=== PATIENT | male | born 1955 | race Caucasian/White ===

== ENCOUNTER → 2017-01-17 | Outpatient (CLI) | payer OTHER, MEDICARE ==
[2017-01-17 18:18] LABS: ANION GAP 11 MEQ/L (8-16); BLOOD UREA NITROGEN 10 MG/DL (7-18); CARBON DIOXIDE LEVEL 23 MEQ/L (21-32); CHLORIDE LEVEL 105 MEQ/L (98-107); CREATININE FOR GFR 0.78 MG/DL (0.70-1.30); GLOMERULAR FILTRATION RATE > 60.0 (>49); GLUCOSE, FASTING 180 MG/DL (80-110); POTASSIUM SERUM 4.1 MEQ/L (3.5-5.1); SODIUM LEVEL 139 MEQ/L (136-145)
== END ==
LOC: M WUC 11:41
PROVIDERS: ATTEND Physician Assistant Medical
DX: E11.9 Type 2 diabetes mellitus without complications (principal)

== ENCOUNTER 2017-04-03 11:52 | Emergency (ER) | payer OTHER, MEDICARE ==
[~2017-04-03] VITALS: Ht 182.9 cm; Wt 120.2 kg
[2017-04-03] MEDS ORDERED: METF500T4 (12:05)
[2017-04-03] MEDS ORDERED: OMEP20CA3 (12:05)
[2017-04-03] MEDS ORDERED: BYDU1INJ (12:05)
[2017-04-03] MEDS ORDERED: PIOG30TA4 (12:05)
[2017-04-03] MEDS ORDERED: WELC625T (12:05)
[2017-04-03] MEDS ORDERED: ASPI81TA85 PO (12:05)
[2017-04-03] MEDS ORDERED: EZET10TA (12:05)
[2017-04-03] MEDS ORDERED: GLYB25TA (12:05)
[2017-04-03] MEDS ORDERED: LISI-538 (12:05)
[2017-04-03] MEDS ORDERED: diazePAM 5 MG TAB PO ONE (13:00)
[2017-04-03] MEDS ORDERED: KETOROLAC 60 MG/2 ML VIAL (J1885) IM ONE (13:00)
--- NOTE | 2017-04-03 13:44 | REP ---
CERVICAL SPINE, EIGHT VIEWS: HISTORY: Neck pain. The cervical spine is visualized from C1 to the C5-6 level in the lateral radiographs. There is no acute fracture. The C3-4 through C5-6 intervertebral discs are decreased in height consistent with disc degeneration. Osteophytes are present on C4-6. There is narrowing of the right C4-6 and left C5 and 6 neural foramina secondary to uncinate process hypertrophy. There are 1.5 mm of anterior subluxation of C3 on 4. This increases to 2 mm with flexion and reduces with extension. IMPRESSION: Degenerative change as described above. Signed by Deondre Lawrence MD 04/03/2017 01:46 P
[2017-04-03] MEDS ORDERED: VALI5TAB PO (14:13)
[2017-04-03] MEDS ORDERED: NAPR500T PO (14:13)
[2017-04-03 14:35] VITALS: BP 146/84
== END 2017-04-03 14:37 | disposition home or self-care (01) ==
LOC: M ED 12:52
DX: M50.31 Other cervical disc degeneration, high cervical region (principal); E11.9 Type 2 diabetes mellitus without complications; I10 Essential (primary) hypertension; I25.10 Atherosclerotic heart disease of native coronary artery without angina pectoris; G89.29 Other chronic pain; M06.9 Rheumatoid arthritis, unspecified; E66.9 Obesity, unspecified; Z88.5 Allergy status to narcotic agent; Z91.040 Latex allergy status; Z91.018 Allergy to other foods; Z79.899 Other long term (current) drug therapy
CPT/HCPCS: 72052; 96372; 99282; J1885

== ENCOUNTER → 2017-07-10 | Outpatient (CLI) | payer OTHER, MEDICARE ==
[~2017-07-10] MED LIST: ACTO30TA15 PO; ASPI81TA85 PO; BYDU1INJ SQ; CHLO125TA PO; CHLO25TA PO; COLE625TAB PO; EZET10TA; FISH1000 PO; GLYB25TA PO; LISI-538 PO; METF500T4 PO; NAPR500T PO; NORV5TAB PO; OMEP20CA3 PO; PIOG30TA4; ROSU20TA PO; SPIR25TA2 PO; VALI5TAB PO; VANC125C2 PO
[2017-07-10 13:31] LABS: ALBUMIN/GLOBULIN RATIO 1.25 (1.00-1.93); ALKALINE PHOSPHATASE 63 U/L (45-117); ALT/SGPT 83 U/L (12-78); ANION GAP 13 MEQ/L (8-16); AST/SGOT 68 U/L (15-37); BILIRUBIN,DIRECT 0.2 MG/DL (0.0-0.2); BILIRUBIN,TOTAL 0.6 MG/DL (0.2-1.0); BLOOD UREA NITROGEN 13 MG/DL (7-18); CALCIUM LEVEL 8.8 MG/DL (8.8-10.2); CARBON DIOXIDE LEVEL 25 MEQ/L (21-32); CHLORIDE LEVEL 104 MEQ/L (98-107); CHOLESTEROL LEVEL 219 MG/DL (<200); CREATININE FOR GFR 0.72 MG/DL (0.70-1.30); GLOMERULAR FILTRATION RATE > 60.0 (>49); GLUCOSE, FASTING 177 MG/DL (80-110); POTASSIUM SERUM 4.1 MEQ/L (3.5-5.1); SODIUM LEVEL 142 MEQ/L (136-145); TOTAL PROTEIN 7.2 GM/DL (6.4-8.2); TRIGLYCERIDES LEVEL 175 MG/DL (<150)
== END ==
LOC: M WUC 08:34
PROVIDERS: ATTEND Internal Medicine Endocrinology, Diabetes & Metabolism
DX: E78.00 Pure hypercholesterolemia, unspecified (principal); E11.9 Type 2 diabetes mellitus without complications

== ENCOUNTER 2017-08-07 11:09 | Emergency (ER) | payer OTHER, MEDICARE ==
[~2017-08-07] VITALS: Ht 182.9 cm; Wt 119.1 kg
[~2017-08-07 11:09] MED LIST changes: -ACTO30TA15 PO; -CHLO125TA PO; -CHLO25TA PO; -FISH1000 PO; -NORV5TAB PO; -ROSU20TA PO; -SPIR25TA2 PO; -VANC125C2 PO
[2017-08-07] MEDS ORDERED: ACTO30TA15 PO (11:28)
[2017-08-07] MEDS ORDERED: ROSU20TA PO (11:28)
[2017-08-07] MEDS ORDERED: SPIR25TA2 PO (11:28)
[2017-08-07] MEDS ORDERED: FISH1000 PO (11:28)
[2017-08-07] MEDS ORDERED: CHLO125TA PO (11:28)
[2017-08-07] MEDS ORDERED: ASPIRIN 81 MG CHEW TABLET PO ONE (11:30)
[2017-08-07 11:36] LABS: BASO % 0.1 % (0.0-1.0); IMMATURE GRANULOCYTE % 0.4 % (0-0); LYMPH # 0.6 10^3/uL (1.5-4.5); LYMPH % 6.5 % (24.0-44.0); MEAN CORPUSCULAR HEMOGLOBIN 31.8 pg (27.0-33.0); MEAN CORPUSCULAR VOLUME 90.7 fl (80.0-96.0); MONO # 0.3 10^3/uL (0.0-0.8); MONO % 3.4 % (0.0-5.0); NEUTROPHILS # 8.1 10^3/uL (1.8-7.7); NEUTROPHILS % 89.6 % (36.0-66.0); PLATELET COUNT, AUTOMATED 210 10^3/uL (150-450); RED CELL DISTRIBUTION WIDTH 12.9 % (11.5-14.5); WHITE BLOOD COUNT 9.1 10^3/uL (4.0-10.0)
[2017-08-07] MEDS: NITROGLYCERIN 0.4 MG SUBL TABLET SL PRN ×3 (11:37→11:56)
[2017-08-07 11:59] LABS: ALBUMIN 4.3 GM/DL (3.2-5.2); ALBUMIN/GLOBULIN RATIO 1.02 (1.00-1.93); ALKALINE PHOSPHATASE 72 U/L (45-117); ALT/SGPT 70 U/L (12-78); ANION GAP 10 MEQ/L (8-16); AST/SGOT 40 U/L (15-37); BILIRUBIN,DIRECT 0.3 MG/DL (0.0-0.2); BILIRUBIN,TOTAL 0.9 MG/DL (0.2-1.0); BLOOD UREA NITROGEN 18 MG/DL (7-18); CALCIUM LEVEL 9.5 MG/DL (8.8-10.2); CARBON DIOXIDE LEVEL 22 MEQ/L (21-32); CHLORIDE LEVEL 99 MEQ/L (98-107); GLOMERULAR FILTRATION RATE > 60.0 (>49); GLUCOSE, FASTING 295 MG/DL (80-110); POTASSIUM SERUM 3.9 MEQ/L (3.5-5.1); SODIUM LEVEL 131 MEQ/L (136-145); TOTAL PROTEIN 8.5 GM/DL (6.4-8.2)
[2017-08-07] MEDS ORDERED: ONDANSETRON 4MG/2ML VIAL (J2405) IV ONE (12:00)
--- NOTE | 2017-08-07 12:00 | REP ---
Portable chest x-ray: Single view. History: Chest pain. Comparison chest x-ray: April 17, 2010. Findings: EKG monitoring electrodes overlie the chest. The lungs are symmetrically aerated and clear. The pleural angles are sharp. Heart is not enlarged. Pulmonary vasculature is not increased. No significant bony abnormality is seen. Impression: No acute disease. Signed by Rosalio Paz MD 08/07/2017 11:51 A
[2017-08-07] MEDS ORDERED: ISOVUE-370 76% 100ML VIAL (Q9967) As Ordered ONE (14:32)
[2017-08-07] MEDS ORDERED: CHLORTHALIDONE 12.5MG PER 1/2 TABLET PO ONE (15:00)
[2017-08-07] MEDS ORDERED: LISINOPRIL 20 MG TAB PO ONE ×2 (15:00→16:00)
--- NOTE | 2017-08-07 15:01 | REP ---
CT pulmonary angiogram: With IV contrast. History: Chest pain. Comparison studies: No comparison. 75 cc's of Isovue 370 are administered intravenously. Contrast dose: CT technique: Helical scanning is acquired and overlapping 1.5 mm and contiguous 3 mm axial images are reformatted. In addition, a 3-D work station is deployed to generate thick slab maximum intensity projection images in sagittal and coronal imaging projections. CT pulmonary angiographic findings: There is good opacification of the pulmonary arterial tree. There is no CT evidence of pulmonary embolus. The thoracic aorta enhances homogeneously and is normal in course and caliber. There is some vascular calcification including left coronary artery vascular calcification. No adrenal lesion is seen. Visualized upper abdominal structures are unremarkable. No hilar or mediastinal mass or adenopathy is observed. The lung villareal are clear. Maximal intensity projection images show no evidence of vessel cutoff or filling defect. There is a calcified granuloma in the anterior segment right upper lobe. No bony abnormality is seen. Impression: No CT evidence of pulmonary embolus. No active disease. Granulomatous calcification right upper lobe. Signed by Rosalio Paz MD 08/07/2017 02:53 P
[2017-08-07] MEDS ORDERED: GI COCKTAIL 50ML BTL(HYOSCYAMINE/MAALOX/LIDOCAINE VISCOUS)(1:3:1) As Ordered ONE (15:28)
[2017-08-07] MEDS ORDERED: GI COCKTAIL 50ML BTL(HYOSCYAMINE/MAALOX/LIDOCAINE VISCOUS)(1:3:1) PO ONE (15:30)
[2017-08-07 16:00] VITALS: BP 170/79
[2017-08-07 18:15] VITALS: BP 185/91
--- NOTE | 2017-08-08 07:39 | ECGEPIP ---
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
--- NOTE | 2017-08-08 07:43 | ECGEPIP ---
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
== END 2017-08-07 18:19 | disposition home or self-care (01) ==
LOC: M ED 11:09
DX: R07.9 Chest pain, unspecified (principal); I10 Essential (primary) hypertension; E78.4 Other hyperlipidemia; G47.33 Obstructive sleep apnea (adult) (pediatric)
CPT/HCPCS: 36415; 71010; 71275; 80048; 80076; 82550; 82553; 83690; 84443; 85025; 85730; 93005; 93041; 94760; 96374; 99285; J2405; Q9967

== ENCOUNTER 2017-08-11 05:54 | Inpatient (IN) | payer OTHER, MEDICARE ==
[~2017-08-11] VITALS: Ht 182.9 cm; Wt 111.2 kg
[~2017-08-11 05:54] MED LIST changes: +ACTO30TA15 PO; +CHLO125TA PO; +FISH1000 PO; +ROSU20TA PO; +SPIR25TA2 PO
[2017-08-11] MEDS ORDERED: NS 500 ML IV ONE ×2 (06:45→10:45)
[2017-08-11] MEDS ORDERED: GASTROGRAFIN SOLUTION 30ML PO ONE (06:45)
[2017-08-11 06:58] LABS: MEAN CORPUSCULAR HEMOGLOBIN 31.5 pg (27.0-33.0); MEAN CORPUSCULAR HGB CONC 35.7 g/dl (32.0-36.5); MEAN CORPUSCULAR VOLUME 88.2 fl (80.0-96.0); PLATELET COUNT, AUTOMATED 266 10^3/uL (150-450); RED CELL DISTRIBUTION WIDTH 12.6 % (11.5-14.5)
[2017-08-11 07:03] LABS: ADD MANUAL DIFFER YES; DIFF SLIDE NUMBER 133; LEFT SHIFT POS FLAG; POSITIVE MORPH POS FLAG; WBC SCAT POS FLAG
[2017-08-11] MEDS ORDERED: GASTROGRAFIN SOLUTION 30ML (Q9963) PO ONE (07:15)
[2017-08-11] MEDS ORDERED: NS 1,000 ML IV ONE ×2 (07:15→08:00)
[2017-08-11 07:24] LABS: BANDS 5 % (< 11); EOSINOPHILS 2 % (0-5)
[2017-08-11 07:29] LABS: ALBUMIN 3.5 GM/DL (3.2-5.2); ALBUMIN/GLOBULIN RATIO 0.88 (1.00-1.93); BILIRUBIN,DIRECT 0.1 MG/DL (0.0-0.2); BILIRUBIN,TOTAL 0.5 MG/DL (0.2-1.0); CALCIUM LEVEL 8.3 MG/DL (8.8-10.2); CREATININE FOR GFR 3.56 MG/DL (0.70-1.30); GLOMERULAR FILTRATION RATE 18.5 (>49); POTASSIUM SERUM 3.2 MEQ/L (3.5-5.1); TOTAL PROTEIN 7.5 GM/DL (6.4-8.2)
--- NOTE | 2017-08-11 08:09 | REP ---
Clinical: Diarrhea and acute abdominal pain. Technique: Axial noncontrast images from the lung bases to the pubic symphysis with coronal and sagittal re-formations. Comparison: 06/13/2012. Findings: Lung bases are clear. Fatty infiltration to the liver noted. Cholelithiasis suggested without acute cholecystitis. Spleen, pancreas, bilateral adrenal glands and kidneys are normal for noncontrast evaluation. The enteric system is without obstruction or acute inflammatory process. Few scattered sigmoid diverticula noted without acute diverticulitis. Normal terminal ileum and appendix identified in the right lower quadrant. The patient is status post ventral hernia repair with mesh in stable position. Pelvis demonstrates normal bladder and age appropriate prostate/seminal vesicles. Fat containing left inguinal hernia noted. No ascites. No adenopathy. No mass. Atherosclerotic changes of the aorta without aneurysm. Musculoskeletal structures demonstrate age-related degenerative changes. Impression: 1. Hepatic steatosis. 2. Layering sludge/cholelithiasis suggested without acute cholecystitis. 3. Few scattered sigmoid diverticula. 4. Small fat containing left inguinal hernia. 5. No further acute abdominopelvic pathology appreciated. Signed by Juno Quintana MD 08/11/2017 08:00 A
[2017-08-11] MEDS: NS 1,000 ML IV SCH ×3 (09:08→23:51)
[2017-08-11] MEDS ORDERED: ONDANSETRON 4MG/2ML VIAL (J2405) IV PRN (09:15)
[2017-08-11] MEDS ORDERED: CHLO25TA PO (09:27)
[2017-08-11] MEDS ORDERED: KCL 10MEQ IN 100ML SWI (KRUN) 10 MEQ in APPROPRIATE DILUENT 1 EA IV ONE ×2 (09:30)
--- NOTE | 2017-08-11 09:42 | ECGEPIP ---
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
[2017-08-11 09:46] LABS: MAGNESIUM LEVEL 1.9 MG/DL (1.8-2.4)
[2017-08-11 13:27] VITALS: BP 95/60
[2017-08-11] MEDS: VANCOMYCIN ORAL SOL 250MG/5ML ORAL SYRINGE PO SCH ×3 (14:50→23:50)
[2017-08-11] MEDS: AZITHROMYCIN 250 MG TAB PO SCH (14:50)
[2017-08-11 15:19] LABS: CALCIUM LEVEL 7.2 MG/DL (8.8-10.2); CREATININE FOR GFR 1.97 MG/DL (0.70-1.30); GLOMERULAR FILTRATION RATE 36.6 (>49); POTASSIUM SERUM 3.2 MEQ/L (3.5-5.1)
[2017-08-11 16:00] VITALS: BP 85/50
[2017-08-11] MEDS ORDERED: GLUCAGON FOR INJ 1 MG VIAL (J1610) SC PRN (16:15)
[2017-08-11] MEDS ORDERED: DEXTROSE 50% 50 ML SYRINGE IV PRN (16:15)
[2017-08-11] MEDS ORDERED: GLUCOSE 4 GM CHEW TABLET PO PRN (16:15)
--- NOTE | 2017-08-11 16:37 | HPE ---
DATE OF ADMISSION: 08/11/2017 Mr. Cowan is a patient of Dr. De La Torre. Surgeon is Dr. Cabrera. Beef Pusher is Dr. Sanchez. CHIEF COMPLAINT: Diarrhea. SUMMARY OF HIS PRESENTATION: This is a 62-year-old who last felt well on 08/06/2017. Last week he had a stress test. He had gone for a steak, egg and cheese bagel at [employer]. After that he developed abdominal pain and diarrhea. He had stomach pain that affected his sleep. Diarrhea advanced until he was having stools every hour. He described no blood. He actually developed some chest discomfort and came to the emergency department on the . On that daily, he had a CT angiogram of his chest and his blood pressure was noted to be high. His blood pressure medications had been adjusted. He was doubled on his Lisinopril and started on one or more diuretics. Since then he has noticed decreasing urinary output and increasing diarrhea with poor oral intake. PAST MEDICAL HISTORY: 1. Obstructive sleep apnea on CPAP. 2. Diabetes. 3. Exposure to Agent [place]. 4. History of hepatitis A. 5. Hypertension. 6. Epistaxis. SURGICAL HISTORY: Notable for: 1. Umbilical hernia repair by Dr. Venegas. 2. Revision by Dr. Reardon with mesh. 3. Repair of a broken arm on the left as a child. FAMILY HISTORY: Notable for mother who at age 72 of bone cancer. Father of a myocardial infarction at age 76. Two uncles with myocardial infarctions. ALLERGIES: BONITA, LATEX, MORPHINE. MEDICATIONS: At home include: - aspirin - chlorthalidone - Welchol - fish oil - glyburide - Lisinopril - metformin - omeprazole - Crestor - spironolactone - Bydureon - Actos REVIEW OF SYSTEMS: Notable for feeling chills, no recorded fever. No shortness of breath. No chest pain. He has had abdominal pain without radiation, which he describes as crampy, otherwise unremarkable. SOCIAL HISTORY: He is a disabled . He is independent in his activities of daily living. He denies smoking or alcohol use. PHYSICAL EXAMINATION: Temperature is 97, pulse 82, respiratory rate 18, blood pressure 105/60, 94% on room air. He is awake, appropriately interactive, pleasantly conversant, good historian. NECK: Thick and supple. LUNGS: Breathing is symmetrical. I:E ratio is 1:3. No wheezes, rales or rhonchi. Capillary refill is less than 2 seconds. Radial pulses are 2+. ABDOMEN: Distended. Mild right lower quadrant tenderness without rebound or guarding. EXTREMITIES: No lower extremity edema. Strength is 5/5 in upper and lower extremities. I actually watch him ambulate without difficulty. Cranial nerves II through XII are grossly intact. Normal mood and affect. White cell count 10, hemoglobin 16, platelets of 266. Sodium is 134, potassium 3.2, BUN 42, creatinine 1.97. Gastrointestinal panel is positive for campylobacter and Clostridium (C) difficile. ASSESSMENT: This is a 62-year-old with infectious diarrhea and acute renal failure, which is most likely multifactorial. PLAN: As follows: 1. Acute renal failure. This is most likely multifactorial, representing combination of effect of recent CT contrast test, infectious diarrhea, poor medication side effect. The plan would be to continue with IV hydration. He has had episodes of hypotension. It is notable to make mention that when he has had episodes of hypotension, he has not been noted to have elevated lactic acid and he has been ambulating with a systolic blood pressure is low with permission of the staff. 2. The patient has infectious diarrhea. He will be given three doses of Zithromax and a course of oral vancomycin. He has not had recent antibiotic use. He did eat out at [employer]. No recent travel. He does have well water at home, but they do not drink the well water. No sick contacts. 3. The patient has electrolyte abnormalities, including hyponatremia and hypokalemia, which will be repleted. Magnesium level is within normal limits. Elevated lipase, which I believe is from his GI illness. CT scan showed no evidence of pancreatitis. He has no pain in his left upper quadrant. We will repeat laboratories tomorrow. He is made nothing by mouth. If he improves, he will be made clear liquids this evening. 4. The patient has obstructive sleep apnea. He will be given permission to use his CPAP from home. 5. The patient has diabetes. He will be placed on fingersticks and sliding scale insulin. He has already stopped his metformin at home, but had been taking his glyburide. 6. The patient has a history of hypertension. Obviously, his antihypertensives are held. This can be reevaluated as an outpatient. 7. The patient has had a recent stress test.
[2017-08-11] MEDS ORDERED: POTASSIUM CHLORIDE 10 MEQ SR TABLET PO ONE (16:45)
[2017-08-11] MEDS: HumaLOG INSULIN (NovoLOG) PER UNIT SC SCH ×2 (17:30→21:00)
[2017-08-11 20:00] VITALS: BP 119/58
[2017-08-11 23:59] VITALS: BP 121/59
[2017-08-12 04:00] VITALS: BP 115/61
[2017-08-12] MEDS: VANCOMYCIN ORAL SOL 250MG/5ML ORAL SYRINGE PO SCH ×3 (05:10→17:23)
[2017-08-12 05:29] LABS: MEAN CORPUSCULAR HEMOGLOBIN 31.4 pg (27.0-33.0); MEAN CORPUSCULAR HGB CONC 34.9 g/dl (32.0-36.5); RED CELL DISTRIBUTION WIDTH 12.5 % (11.5-14.5); WHITE BLOOD COUNT 7.5 10^3/uL (4.0-10.0)
[2017-08-12 06:02] LABS: ALBUMIN 2.9 GM/DL (3.2-5.2); ALBUMIN/GLOBULIN RATIO 0.91 (1.00-1.93); ALKALINE PHOSPHATASE 55 U/L (45-117); ALT/SGPT 52 U/L (12-78); ANION GAP 8 MEQ/L (8-16); AST/SGOT 43 U/L (15-37); BILIRUBIN,TOTAL 0.4 MG/DL (0.2-1.0); BLOOD UREA NITROGEN 24 MG/DL (7-18); CALCIUM LEVEL 7.5 MG/DL (8.8-10.2); CARBON DIOXIDE LEVEL 23 MEQ/L (21-32); CHLORIDE LEVEL 106 MEQ/L (98-107); GLOMERULAR FILTRATION RATE > 60.0 (>49); GLUCOSE, FASTING 147 MG/DL (80-110); MAGNESIUM LEVEL 1.9 MG/DL (1.8-2.4); POTASSIUM SERUM 3.2 MEQ/L (3.5-5.1); SODIUM LEVEL 137 MEQ/L (136-145); TOTAL PROTEIN 6.1 GM/DL (6.4-8.2)
[2017-08-12] MEDS ORDERED: POTASSIUM CHLORIDE 10% LIQ 20 MEQ/15 ML UDC PO ONE (06:45)
[2017-08-12 07:25] VITALS: BP 100/60
[2017-08-12] MEDS: AZITHROMYCIN 250 MG TAB PO SCH (08:47)
[2017-08-12] MEDS: HumaLOG INSULIN (NovoLOG) PER UNIT SC SCH ×4 (08:47→20:57)
--- NOTE | 2017-08-12 11:01 | IPNPDOC ---
Text Note Date of Service The patient was seen on 08/12/17. NOTE Subjective: Patient seen and examined at bedside. No new medical complaints. States his abdominal pain has resolved. Objective: General: NAD, lying comfortably in bed HEENT: NC/AT, EOMI, PERRL Lungs: CTA B/L Heart: +S1S2 Abd: soft, NT, +BS Ext: no edema ASSESSMENT: This is a 62-year-old with infectious diarrhea and acute renal failure, which is most likely multifactorial. PLAN: As follows: 1. Acute renal failure - resolved - most likely multifactorial, representing combination of effect of recent CT contrast test, infectious diarrhea, poor medication side effect - decrease rate of iv fluids today - monitor renal function - he has been hypotensive - continue to follow clinically 2. The patient has infectious diarrhea - zithromycin, oral vanco - GI panel positive results noted - Campylobacter, CDiff - He has not had recent antibiotic use. He did eat out at [employer]. No recent travel. He does have well water at home, but they do not drink the well water. No sick contacts. 3. Electrolyte abnormalities - continue to follow and replete as needed 4. The patient has obstructive sleep apnea. He will be given permission to use his CPAP from home. 5. The patient has diabetes. He will be placed on fingersticks and sliding scale insulin. He has already stopped his metformin at home, but had been taking his glyburide. 6. The patient has a history of hypertension. His antihypertensives are held. This can be reevaluated as an outpatient. 7. The patient has had a recent stress test. 8. DVT prophylaxis - mechanical VS,Fishbone, I+O VS, Fishbone, I+O Laboratory Tests 08/11/17 14:50 Calcium Level 7.2 L 08/12/17 04:54 Calcium Level 7.5 L, Red Blood Count 4.42, Mean Corpuscular Volume 90.0, Mean Corpuscular Hemoglobin 31.4, Mean Corpuscular Hemoglobin Concent 34.9, Red Cell Distribution Width 12.5, Aspartate Amino Transf (AST/SGOT) 43 H, Alanine Aminotransferase (ALT/SGPT) 52, Alkaline Phosphatase 55, Total Bilirubin 0.4, Total Protein 6.1 L, Albumin 2.9 L Vital Signs Date Time Temp Pulse Resp B/P (MAP) Pulse Ox O2 Delivery O2 Flow Rate FiO2 08/12/17 07:25 97.1 67 20 100/60 (73) 94 Room Air I&O- Last 24 Hours up to 6 AM 08/13/17 05:59 Intake Total 180 ml Output Total 125 ml Balance 55 ml MAKEDA NICOLAS MD Aug 12, 2017 11:01
[2017-08-12] MEDS: NS 1,000 ML IV SCH (11:58)
[2017-08-12 12:00] VITALS: BP 120/70
[2017-08-12 16:00] VITALS: BP 110/70
[2017-08-12 20:00] VITALS: BP 146/90
[2017-08-12 23:59] VITALS: BP 136/60
[2017-08-13] MEDS: VANCOMYCIN ORAL SOL 250MG/5ML ORAL SYRINGE PO SCH ×5 (00:02→23:47)
[2017-08-13] MEDS: NS 1,000 ML IV SCH (01:33)
[2017-08-13 04:00] VITALS: BP 143/65
[2017-08-13 06:23] LABS: MEAN CORPUSCULAR HEMOGLOBIN 31.6 pg (27.0-33.0); MEAN CORPUSCULAR HGB CONC 35.5 g/dl (32.0-36.5); MEAN CORPUSCULAR VOLUME 88.9 fl (80.0-96.0); RED CELL DISTRIBUTION WIDTH 12.4 % (11.5-14.5); WHITE BLOOD COUNT 8.8 10^3/uL (4.0-10.0)
[2017-08-13 06:41] LABS: ALBUMIN 3.4 GM/DL (3.2-5.2); ALBUMIN/GLOBULIN RATIO 0.94 (1.00-1.93); ALKALINE PHOSPHATASE 68 U/L (45-117); ALT/SGPT 61 U/L (12-78); ANION GAP 8 MEQ/L (8-16); AST/SGOT 47 U/L (15-37); BILIRUBIN,TOTAL 0.5 MG/DL (0.2-1.0); BLOOD UREA NITROGEN 11 MG/DL (7-18); CALCIUM LEVEL 8.9 MG/DL (8.8-10.2); CARBON DIOXIDE LEVEL 24 MEQ/L (21-32); CHLORIDE LEVEL 102 MEQ/L (98-107); CREATININE FOR GFR 0.84 MG/DL (0.70-1.30); GLOMERULAR FILTRATION RATE > 60.0 (>49); GLUCOSE, FASTING 162 MG/DL (80-110); MAGNESIUM LEVEL 1.5 MG/DL (1.8-2.4); POTASSIUM SERUM 3.5 MEQ/L (3.5-5.1); SODIUM LEVEL 134 MEQ/L (136-145)
[2017-08-13 08:00] VITALS: BP 130/72
[2017-08-13] MEDS ORDERED: MAG SULF 1GM/100ML (MAG RUN) 1 GM in APPROPRIATE DILUENT 1 EA IV ONE (08:00)
--- NOTE | 2017-08-13 08:14 | IPNPDOC ---
Text Note Date of Service The patient was seen on 08/13/17. NOTE Subjective: Patient seen and examined at bedside. No new medical complaints. States his abdominal pain has resolved. Objective: General: NAD, lying comfortably in bed HEENT: NC/AT, EOMI, PERRL Lungs: CTA B/L Heart: +S1S2 Abd: soft, NT, +BS Ext: no edema ASSESSMENT: This is a 62-year-old with infectious diarrhea and acute renal failure, which is most likely multifactorial. PLAN: As follows: 1. Acute renal failure - resolved - most likely multifactorial, representing combination of effect of recent CT contrast test, infectious diarrhea, poor medication side effect - will dc IV fluids today - monitor renal function - he has been hypotensive - continue to follow clinically 2. The patient has infectious diarrhea - zithromycin, oral vanco - GI panel positive results noted - Campylobacter, CDiff - advance diet - He has not had recent antibiotic use. He did eat out at [employer]. No recent travel. He does have well water at home, but they do not drink the well water. No sick contacts. 3. Electrolyte abnormalities - continue to follow and replete as needed 4. The patient has obstructive sleep apnea - compliant with CPAP. 5. The patient has diabetes. - blood sugars have been normal in hospital - discontinued sliding scale 6. The patient has a history of hypertension. His antihypertensives are held. This can be reevaluated as an outpatient. 7. The patient has had a recent stress test. 8. DVT prophylaxis - mechanical VS,Fishbone, I+O VS, Fishbone, I+O Laboratory Tests 08/13/17 05:52 Red Blood Count 4.43, Mean Corpuscular Volume 88.9, Mean Corpuscular Hemoglobin 31.6, Mean Corpuscular Hemoglobin Concent 35.5, Red Cell Distribution Width 12.4 , Calcium Level 8.9 #, Aspartate Amino Transf (AST/SGOT) 47 H, Alanine Aminotransferase (ALT/SGPT) 61, Alkaline Phosphatase 68, Total Bilirubin 0.5, Total Protein 7.0, Albumin 3.4 Vital Signs Date Time Temp Pulse Resp B/P (MAP) Pulse Ox O2 Delivery O2 Flow Rate FiO2 08/13/17 04:00 98.6 91 18 143/65 (91) 98 Room Air MAKEDA NICOLAS MD Aug 13, 2017 08:14
[2017-08-13] MEDS: AZITHROMYCIN 250 MG TAB PO SCH (08:28)
[2017-08-13 16:00] VITALS: BP 128/74
[2017-08-13 19:31] VITALS: BP 148/70
[2017-08-14 04:00] VITALS: BP 163/92
[2017-08-14] MEDS: VANCOMYCIN ORAL SOL 250MG/5ML ORAL SYRINGE PO SCH ×4 (05:07→23:47)
[2017-08-14 05:52] LABS: MEAN CORPUSCULAR HEMOGLOBIN 31.3 pg (27.0-33.0); MEAN CORPUSCULAR HGB CONC 35.1 g/dl (32.0-36.5); RED CELL DISTRIBUTION WIDTH 12.3 % (11.5-14.5); WHITE BLOOD COUNT 8.5 10^3/uL (4.0-10.0)
[2017-08-14 06:12] LABS: ALBUMIN 3.3 GM/DL (3.2-5.2); ALBUMIN/GLOBULIN RATIO 0.89 (1.00-1.93); ALKALINE PHOSPHATASE 58 U/L (45-117); ALT/SGPT 71 U/L (12-78); ANION GAP 8 MEQ/L (8-16); AST/SGOT 52 U/L (15-37); BILIRUBIN,TOTAL 0.5 MG/DL (0.2-1.0); BLOOD UREA NITROGEN 12 MG/DL (7-18); CALCIUM LEVEL 9.3 MG/DL (8.8-10.2); CARBON DIOXIDE LEVEL 27 MEQ/L (21-32); CHLORIDE LEVEL 99 MEQ/L (98-107); CREATININE FOR GFR 0.92 MG/DL (0.70-1.30); GLOMERULAR FILTRATION RATE > 60.0 (>49); GLUCOSE, FASTING 177 MG/DL (80-110); MAGNESIUM LEVEL 1.3 MG/DL (1.8-2.4); POTASSIUM SERUM 3.6 MEQ/L (3.5-5.1); SODIUM LEVEL 134 MEQ/L (136-145)
[2017-08-14 07:41] VITALS: BP 164/84
--- NOTE | 2017-08-14 08:41 | IPNPDOC ---
Text Note Date of Service The patient was seen on 08/14/17. NOTE Subjective: Patient seen and examined at bedside. No new medical complaints. States his abdominal pain has resolved. Still having diarrhea. Had some hot flashes this morning, with elevated blood pressure. Objective: General: NAD, sitting comfortably in bed HEENT: NC/AT, EOMI, PERRL Lungs: CTA B/L Heart: +S1S2 Abd: soft, NT, +BS Ext: no edema ASSESSMENT: This is a 62-year-old with infectious diarrhea and acute renal failure, which is most likely multifactorial. PLAN: As follows: 1. Acute renal failure - resolved - most likely multifactorial, representing combination of effect of recent CT contrast test, infectious diarrhea, poor medication side effect - he has been hypotensive, today hypertensive - continue to follow clinically 2. The patient has infectious diarrhea - completed course of azithromycin, continue oral vanco - GI panel positive results noted - Campylobacter, CDiff - tolerating diet - No recent antibiotic use. No recent travel. He does have well water at home, but they do not drink the well water. No sick contacts. 3. Electrolyte abnormalities - hypomagnesemia - continue to follow and replete as needed 4. The patient has obstructive sleep apnea - compliant with CPAP. 5. The patient has diabetes. - blood sugars have been normal in hospital - discontinued sliding scale 6. The patient has a history of hypertension - His antihypertensives have been held secondary to hypotension - will start norvasc today 7. The patient has had a recent stress test. 8. DVT prophylaxis - mechanical VS,Fishbone, I+O VS, Fishbone, I+O Laboratory Tests 08/14/17 05:21 Red Blood Count 4.38, Mean Corpuscular Volume 89.0, Mean Corpuscular Hemoglobin 31.3, Mean Corpuscular Hemoglobin Concent 35.1, Red Cell Distribution Width 12.3 , Calcium Level 9.3, Aspartate Amino Transf (AST/SGOT) 52 H, Alanine Aminotransferase (ALT/SGPT) 71, Alkaline Phosphatase 58, Total Bilirubin 0.5, Total Protein 7.0, Albumin 3.3 Vital Signs Date Time Temp Pulse Resp B/P (MAP) Pulse Ox O2 Delivery O2 Flow Rate FiO2 08/14/17 07:41 97.0 88 18 164/84 (110) 95 Room Air I&O- Last 24 Hours up to 6 AM 08/15/17 06:00 Intake Total 240 ml Output Total 100 ml Balance 140 ml MAKEDA NICOLAS MD Aug 14, 2017 08:41
[2017-08-14] MEDS ORDERED: amLODIPine 5 MG TAB PO SCH (09:00)
[2017-08-14] MEDS: MAG SULF 1GM/100ML (MAG RUN) 1 GM in APPROPRIATE DILUENT 1 EA IV SCH ×2 (10:00→11:17)
[2017-08-14 11:31] VITALS: BP 172/90
[2017-08-14] MEDS: LISINOPRIL 20 MG TAB PO SCH (11:53)
[2017-08-14] MEDS: SLF 3 ML SYR IV SCH ×2 (12:23→23:47)
[2017-08-14] MEDS ORDERED: SLF 3 ML SYR IV PRN (12:30)
[2017-08-14 16:54] VITALS: BP 132/78
[2017-08-14 20:00] VITALS: BP 122/69
[2017-08-14 21:00] VITALS: BP 158/94
[2017-08-15] VITALS: BP 159/84
[2017-08-15 04:00] VITALS: BP 131/73
[2017-08-15] MEDS: SLF 3 ML SYR IV SCH (06:26)
[2017-08-15] MEDS: VANCOMYCIN ORAL SOL 250MG/5ML ORAL SYRINGE PO SCH ×2 (06:26→12:10)
[2017-08-15 07:33] LABS: MEAN CORPUSCULAR HEMOGLOBIN 31.4 pg (27.0-33.0); MEAN CORPUSCULAR HGB CONC 35.2 g/dl (32.0-36.5); MEAN CORPUSCULAR VOLUME 89.2 fl (80.0-96.0); PLATELET COUNT, AUTOMATED 237 10^3/uL (150-450); RED CELL DISTRIBUTION WIDTH 12.3 % (11.5-14.5); WHITE BLOOD COUNT 12.9 10^3/uL (4.0-10.0)
[2017-08-15 07:54] LABS: ALBUMIN 3.5 GM/DL (3.2-5.2); ALBUMIN/GLOBULIN RATIO 0.92 (1.00-1.93); ALKALINE PHOSPHATASE 69 U/L (45-117); ALT/SGPT 82 U/L (12-78); ANION GAP 9 MEQ/L (8-16); AST/SGOT 54 U/L (15-37); BILIRUBIN,TOTAL 0.5 MG/DL (0.2-1.0); BLOOD UREA NITROGEN 13 MG/DL (7-18); CALCIUM LEVEL 9.4 MG/DL (8.8-10.2); CARBON DIOXIDE LEVEL 24 MEQ/L (21-32); CHLORIDE LEVEL 102 MEQ/L (98-107); CREATININE FOR GFR 0.94 MG/DL (0.70-1.30); GLOMERULAR FILTRATION RATE > 60.0 (>49); GLUCOSE, FASTING 187 MG/DL (80-110); MAGNESIUM LEVEL 1.4 MG/DL (1.8-2.4); POTASSIUM SERUM 3.7 MEQ/L (3.5-5.1); SODIUM LEVEL 135 MEQ/L (136-145); TOTAL PROTEIN 7.3 GM/DL (6.4-8.2)
[2017-08-15 08:00] VITALS: BP 133/77
[2017-08-15 08:38] VITALS: BP 133/77
[2017-08-15] MEDS: LISINOPRIL 20 MG TAB PO SCH (08:38)
[2017-08-15] MEDS ORDERED: MAG SULF 1GM/100ML (MAG RUN) 1 GM in APPROPRIATE DILUENT 1 EA IV SCH (09:00)
[2017-08-15] MEDS ORDERED: MAG SULF 1GM/100ML (MAG RUN) 1 GM in APPROPRIATE DILUENT 1 EA IV ONE (09:00)
[2017-08-15] MEDS ORDERED: NORV5TAB PO (11:16)
[2017-08-15] MEDS ORDERED: LISI-538 PO (11:16)
[2017-08-15] MEDS ORDERED: VANC125C2 PO (11:34)
--- NOTE | 2017-08-15 19:45 | DS.PDOC ---
Discharge Summary General Date of Admission Aug 11, 2017 at 09:08 Date of Discharge 08/15/17 Primary Care Physician: NEETU WELLS MD Attending Physician: MAKEDA NICOLAS MD Discharge Summary PROCEDURES PERFORMED DURING STAY: None ADMITTING DIAGNOSES: 1. Acute renal failure. 2. Infectious diarrhea. 3. Electrolyte abnormalities. 4. Obstructive sleep apnea 5. Diabetes 6. Hypertension DISCHARGE DIAGNOSES: 1. Clostridium difficile and Campylobacter positive stool 2. Acute renal failure, resolved. 3. Hypomagnesia 4. Obstructive sleep apnea 5. Diabetes 6. Hypertension COMPLICATIONS/CHIEF COMPLAINT: Acute Kidney Failure. HISTORY OF PRESENT ILLNESS: Patient is 62-year-old male who has history of diabetes, hepatitis, hypertension presents to the emergency room with diarrhea. He stated that he went to [employer] for steak and cheese bagel and afterwards developed abdominal pain and diarrhea. He stated his stomach pain affected his sleep. Was having diarrhea every hour, denied blood. A few days prior to admission patient had developed chest pain and got to the ER. He had a high blood pressure and his blood pressure medications were adjusted. He was doubled on his lisinopril and started on multiple diuretics. Since then he has noticed decreased urinary output and increasing diarrhea with poor oral intake. HOSPITAL COURSE: On the ER patient received a CT of abdomen and pelvis. His did not reveal any cause of patient's diarrhea. GI panel was performed and revealed positive Clostridium difficile and Campylobacter. Patient was started on antibiotics. Patient had low blood pressure in the ER and was started on IV fluids. Vitals were continued to be monitored and IV fluids were continued as patient was hypotensive. Over course of stay blood pressure normalized. Patient had a normal lactic acid on admission. Patient not had any recent antibiotic use. No recent travel. Patient was given potassium for repletion of hypokalemia. Due to acute renal failure diuretics, lisinopril, glyburide and metformin were stopped. Patient's kidney function was followed over the course of stay and improved patient's diarrhea continued to resolve her decrease. Patient did not have diarrhea on discharge. However magnesium was still low. Patient was given IV backgrounds and a one-time dose of oral magnesium. Patient will follow-up on this outpatient. Due to patient's acute kidney energy blood pressure medications were adjusted. Patient was slowly started on lisinopril 20 mg by mouth. DISCHARGE MEDICATIONS: Please see below. ALLERGIES: Please see below. PHYSICAL EXAMINATION ON DISCHARGE: VITAL SIGNS: Please see below. GENERAL: Alert, cooperative. Comfortable. No acute distress. HEENT: HEENT. No bruising. There is pain. No rhinorrhea. Extraocular muscles intact. NECK: No lymphadenopathy. CARDIOVASCULAR EXAMINATION: Normal S1 and S2. No murmurs. RESPIRATORY EXAMINATION: Clear to auscultation. No wheezing. ABDOMINAL EXAMINATION: Soft nondistended. EXTREMITIES: Moves all extremities equally. No lower extremity edema. SKIN: No bruising. NEUROLOGICAL EXAMINATION: Speech intact. PSYCHIATRIC EXAMINATION: Normal affect. LABORATORY DATA: Please see below. IMAGING: Abdominal/pelvis CT impression showed 1. Hepatic steatosis. 2. Layering sludge/cholelithiasis suggested without acute cholecystitis. 3. Few scattered sigmoid diverticula. 4. Small fat containing left inguinal hernia. 5. No further acute abdominopelvic pathology appreciated. PROGNOSIS: Stable ACTIVITY: As tolerated DIET: 2 g sodium. DISCHARGE PLAN: Plan is to discharge patient home. Patient is continued on vancomycin by mouth 125 mg every 6 hours. Patient's blood pressure medications were adjusted. Patient will go home on amlodipine 5 mg daily. Diuretics were discontinued. Lisinopril was decreased from 40 to 20 mg. DISPOSITION: 01 Home, Self-Care. DISCHARGE INSTRUCTIONS: 1. Follow-up in low magnesium level. Patient was given IV and oral prednisone discharge. Patient's have lab repeated outpatient tomorrow Friday and results sent to primary care doctor. Dr. Wells. 2. Patient's primary care doctor, Dr. Wells in 3-5 days. 3. Patient continue vancomycin 125 mg oral every 6 hours for 5 days. 4. Patient's blood pressure medications were adjusted. Patient is now taking lisinopril 20 mg daily and amlodipine 5 mg daily. DISCHARGE CONDITION: Stable TIME SPENT ON DISCHARGE: Greater than 30 minutes. Vital Signs/I&Os Vital Signs Date Time Temp Pulse Resp B/P (MAP) Pulse Ox O2 Delivery O2 Flow Rate FiO2 08/15/17 08:38 133/77 08/15/17 08:00 97.6 99 18 98 Room Air I&O- Last 24 Hours up to 6 AM 08/16/17 05:59 Intake Total 700 ml Output Total 650 ml Balance 50 ml Laboratory Data Labs 24H Laboratory Tests 2 08/15/17 06:51: Nucleated Red Blood Cells % (auto) 0.0, Anion Gap 9, Glomerular Filtration Rate > 60.0, Blood Urea Nitrogen 13, Creatinine 0.94, Sodium Level 135L, Potassium Level 3.7, Chloride Level 102, Carbon Dioxide Level 24, Calcium Level 9.4, Aspartate Amino Transf (AST/SGOT) 54H, Alanine Aminotransferase (ALT/SGPT) 82H, Alkaline Phosphatase 69, Total Bilirubin 0.5, Total Protein 7.3, Albumin 3.5, Magnesium Level 1.4L, Albumin/Globulin Ratio 0.92L CBC/BMP Laboratory Tests 08/15/17 06:51 Red Blood Count 4.71, Mean Corpuscular Volume 89.2, Mean Corpuscular Hemoglobin 31.4, Mean Corpuscular Hemoglobin Concent 35.2, Red Cell Distribution Width 12.3 , Calcium Level 9.4, Aspartate Amino Transf (AST/SGOT) 54 H, Alanine Aminotransferase (ALT/SGPT) 82 H, Alkaline Phosphatase 69, Total Bilirubin 0.5, Total Protein 7.3, Albumin 3.5 Microbiology Microbiology 08/11/17 Gastrointestinal Tract Panel (PCR) - Final, Complete Campylobacter Clostridium Difficile A/B Discharge Medications Scheduled Amlodipine Besylate (Norvasc) 5 Mg Tab, 5 MG PO DAILY Aspirin (Aspir-81) 81 Mg Tab, 81 MG PO QPM, (Reported) Colesevelam Hydrochloride (Welchol) 625 Mg Tab, 1,875 MG PO BID, (Reported) Exenatide (Bydureon) 2 Mg Inj, 2 MG SQ QWEEK, (Reported) SUNDAYS Fish Oil (Fish Oil) 1,000 Mg Cap, 1,000 MG PO BID, (Reported) Glyburide (Glyburide) 2.5 Mg Tab, 2.5 MG PO BID, (Reported) Lisinopril (Lisinopril) 20 Mg Tab, 20 MG PO DAILY Metformin Hydrochloride (Metformin HCl ER) 500 Mg Tab, 1,000 MG PO BID, ( Reported) Omeprazole (Omeprazole) 20 Mg Cap, 20 MG PO DAILY, (Reported) Pioglitazone Hydrochloride (Actos) 30 Mg Tab, 30 MG PO DAILY, (Reported) Rosuvastatin Calcium (Rosuvastatin Calcium) 20 Mg Tab, 10 MG PO QPM, (Reported) Vancomycin Hcl (Vancomycin HCl) 125 Mg Cap, 125 MG PO Q6H Allergies Coded Allergies: Latex (Verified Allergy, Unknown, 04/03/17) [place] (Unverified Allergy, Unknown, 04/03/17) Morphine (Verified Allergy, Unknown, 04/03/17) GME ATTESTATION GME ATTESTATION My preceptor for this patient encounter was physically present in the building during the encounter and was fully available. As needed, all aspects of the patient interview, examination, medical decision making process, and medical care plan development were reviewed and approved by the preceptor. Preceptor is aware and concurs with the plan as stated in the body of this note and will attest to such by his/her cosignature. MAKEDA DURBIN DO Aug 15, 2017 19:45
[2017-08-16] MEDS ORDERED: MAGNESIUM CHLORIDE 64 MG TABCR (SLO MAG) PO SCH (09:00)
== END 2017-08-15 12:25 | disposition home or self-care (01) | DRG 372 ==
LOC: M ED 05:54 → M ED INP 09:08 → M PCU 13:27 → M PED 08-14 19:58
PROVIDERS: ADMIT Internal Medicine; ATTEND Internal Medicine
DX: A04.72 Enterocolitis due to Clostridium difficile, not specified as recurrent (principal); A04.5 Campylobacter enteritis; N17.9 Acute kidney failure, unspecified; G47.33 Obstructive sleep apnea (adult) (pediatric); E87.8 Other disorders of electrolyte and fluid balance, not elsewhere classified; E11.9 Type 2 diabetes mellitus without complications; I10 Essential (primary) hypertension; Z91.040 Latex allergy status; Z88.5 Allergy status to narcotic agent; Z91.018 Allergy to other foods; Z99.89 Dependence on other enabling machines and devices; Z79.82 Long term (current) use of aspirin; Z79.84 Long term (current) use of oral hypoglycemic drugs; Z79.899 Other long term (current) drug therapy

== ENCOUNTER → 2017-08-16 | Outpatient (CLI) | payer OTHER, MEDICARE ==
[~2017-08-16] MED LIST changes: +CHLO25TA PO; +NORV5TAB PO; +VANC125C2 PO
== END ==
LOC: M WUC 10:13
PROVIDERS: ATTEND Family Medicine
DX: E83.42 Hypomagnesemia (principal)

== ENCOUNTER → 2017-09-22 | Outpatient (CLI) | payer OTHER, MEDICARE ==
[2017-09-22 15:25] LABS: ALBUMIN 3.7 GM/DL (3.2-5.2); ALKALINE PHOSPHATASE 67 U/L (45-117); ALT/SGPT 52 U/L (12-78); ANION GAP 8 MEQ/L (8-16); AST/SGOT 41 U/L (7-37); BILIRUBIN,TOTAL 0.5 MG/DL (0.2-1.0); BLOOD UREA NITROGEN 10 MG/DL (7-18); CALCIUM LEVEL 8.8 MG/DL (8.8-10.2); CARBON DIOXIDE LEVEL 26 MEQ/L (21-32); CHLORIDE LEVEL 105 MEQ/L (98-107); CREATININE FOR GFR 0.72 MG/DL (0.70-1.30); GLOMERULAR FILTRATION RATE > 60.0 (>49); GLUCOSE, FASTING 175 MG/DL (80-110); MAGNESIUM LEVEL 1.9 MG/DL (1.8-2.4); POTASSIUM SERUM 4.3 MEQ/L (3.5-5.1); SODIUM LEVEL 139 MEQ/L (136-145); TOTAL PROTEIN 7.4 GM/DL (6.4-8.2)
[2017-09-22 15:45] LABS: BASO % 0.5 % (0.0-1.0); EOS # 0.1 10^3/uL (0.0-0.50); EOS % 1.3 % (0.0-3.0); IMMATURE GRANULOCYTE % 0.5 % (0-0); LYMPH # 1.9 10^3/uL (1.5-4.5); LYMPH % 30.1 % (24.0-44.0); MEAN CORPUSCULAR HGB CONC 32.6 g/dl (32.0-36.5); MONO # 0.6 10^3/uL (0.0-0.8); MONO % 9.2 % (0.0-5.0); NEUTROPHILS # 3.6 10^3/uL (1.8-7.7); NEUTROPHILS % 58.4 % (36.0-66.0); PLATELET COUNT, AUTOMATED 213 10^3/uL (150-450); RED CELL DISTRIBUTION WIDTH 13.7 % (11.5-14.5); WHITE BLOOD COUNT 6.2 10^3/uL (4.0-10.0)
== END ==
LOC: M WUC 09:33
PROVIDERS: ATTEND Emergency Medicine
DX: A04.72 Enterocolitis due to Clostridium difficile, not specified as recurrent (principal); E83.42 Hypomagnesemia

== ENCOUNTER → 2017-10-24 | Outpatient (CLI) | payer OTHER, MEDICARE ==
[2017-10-24 18:29] LABS: ALBUMIN 3.8 GM/DL (3.2-5.2); ALKALINE PHOSPHATASE 63 U/L (45-117); ALT/SGPT 52 U/L (12-78); AST/SGOT 42 U/L (7-37); BILIRUBIN,DIRECT 0.1 MG/DL (0.0-0.2); BILIRUBIN,TOTAL 0.4 MG/DL (0.2-1.0); CHOLESTEROL LEVEL 217 MG/DL (<200); TOTAL PROTEIN 7.6 GM/DL (6.4-8.2); TRIGLYCERIDES LEVEL 231 MG/DL (<150)
== END ==
LOC: M WUC 11:30
DX: E78.00 Pure hypercholesterolemia, unspecified (principal)
CPT/HCPCS: 80076

== ENCOUNTER → 2017-12-22 | Outpatient (CLI) | payer OTHER, MEDICARE ==
[2017-12-22 12:55] LABS: BASO % 0.6 % (0.0-1.0); EOS # 0.2 10^3/uL (0.0-0.50); EOS % 2.3 % (0.0-3.0); HEMATOCRIT 36.1 % (42.0-52.0); HEMOGLOBIN 12.3 g/dl (14.0-18.0); IMMATURE GRANULOCYTE % 0.2 % (0-3.0); LYMPH % 29.7 % (24.0-44.0); MEAN CORPUSCULAR HEMOGLOBIN 31.6 pg (27.0-33.0); MEAN CORPUSCULAR HGB CONC 34.1 g/dl (32.0-36.5); MEAN CORPUSCULAR VOLUME 92.8 fl (80.0-96.0); MONO # 0.6 10^3/uL (0.0-0.8); MONO % 9.3 % (0.0-5.0); NEUTROPHILS # 3.8 10^3/uL (1.8-7.7); NEUTROPHILS % 57.9 % (36.0-66.0); PLATELET COUNT, AUTOMATED 165 10^3/uL (150-450); RED BLOOD COUNT 3.89 10^6/uL (4.30-6.10); RED CELL DISTRIBUTION WIDTH 13.4 % (11.5-14.5); WHITE BLOOD COUNT 6.6 10^3/uL (4.0-10.0)
[2017-12-22 13:14] LABS: ANION GAP 6 MEQ/L (8-16); BLOOD UREA NITROGEN 18 MG/DL (7-18); CALCIUM LEVEL 8.9 MG/DL (8.8-10.2); CARBON DIOXIDE LEVEL 27 MEQ/L (21-32); CHLORIDE LEVEL 106 MEQ/L (98-107); CREATININE FOR GFR 0.82 MG/DL (0.70-1.30); GLOMERULAR FILTRATION RATE > 60.0 (>49); GLUCOSE, FASTING 144 MG/DL (70-100); MAGNESIUM LEVEL 1.8 MG/DL (1.8-2.4); POTASSIUM SERUM 4.6 MEQ/L (3.5-5.1); SODIUM LEVEL 139 MEQ/L (136-145)
[2017-12-22 13:22] LABS: TOTAL 25(OH) VITAMIN D 23.7 NG/ML (30.0-100.0)
== END ==
LOC: M WUC 10:36
DX: I10 Essential (primary) hypertension (principal); E83.42 Hypomagnesemia; R04.0 Epistaxis; E55.9 Vitamin D deficiency, unspecified; J30.9 Allergic rhinitis, unspecified

== ENCOUNTER → 2018-07-01 | Outpatient (CLI) | payer MEDICARE, OTHER ==
[2018-07-01 20:14] LABS: ALBUMIN 3.9 GM/DL (3.2-5.2); ALBUMIN/GLOBULIN RATIO 1.18 (1.00-1.93); ALKALINE PHOSPHATASE 50 U/L (45-117); ALT/SGPT 47 U/L (12-78); ANION GAP 12 MEQ/L (8-16); AST/SGOT 34 U/L (7-37); BILIRUBIN,TOTAL 0.4 MG/DL (0.2-1.0); BLOOD UREA NITROGEN 19 MG/DL (7-18); CARBON DIOXIDE LEVEL 22 MEQ/L (21-32); CHLORIDE LEVEL 108 MEQ/L (98-107); CHOLESTEROL LEVEL 121 MG/DL (<200); CHOLESTEROL RISK RATIO 2.951 (<5); GLOMERULAR FILTRATION RATE > 60.0 (>49); GLUCOSE, FASTING 104 MG/DL (70-100); HDL CHOLESTEROL 41 MG/DL (>40); LDL CHOLESTEROL 33.4 MG/DL (<100); MAGNESIUM LEVEL 2.1 MG/DL (1.8-2.4); NON-HDL-C 80 MG/DL; POTASSIUM SERUM 3.9 MEQ/L (3.5-5.1); SODIUM LEVEL 142 MEQ/L (136-145); TOTAL PROTEIN 7.2 GM/DL (6.4-8.2); TRIGLYCERIDES LEVEL 233 MG/DL (<150)
[2018-07-01 20:16] LABS: ESTIMATED AVERAGE GLUCOSE 180 MG/DL (60-110); HEMOGLOBIN A1c 7.9 %
[2018-07-01 20:17] LABS: TOTAL 25(OH) VITAMIN D 45.4 NG/ML (30.0-100.0)
[2018-07-01 20:35] LABS: MALB URINE SIEMENS 8.3 MG/L; MAU/CREAT RATIO 7.6 MCG/MG (0.0-30.0)
== END ==
LOC: M WUC 17:34
DX: E11.40 Type 2 diabetes mellitus with diabetic neuropathy, unspecified (principal); E78.2 Mixed hyperlipidemia; E55.9 Vitamin D deficiency, unspecified
CPT/HCPCS: 83735

== ENCOUNTER → 2018-07-10 | Outpatient (CLI) | payer MEDICARE, OTHER | LOC: M WUC 11:59 | DX: S20.212A Contusion of left front wall of thorax, initial encounter (principal); S40.022A Contusion of left upper arm, initial encounter; S80.01XA Contusion of right knee, initial encounter; X58.XXXA Exposure to other specified factors, initial encounter; Y92.89 Other specified places as the place of occurrence of the external cause; Y93.9 Activity, unspecified; Y99.9 Unspecified external cause status | CPT/HCPCS: 71101 ==

== ENCOUNTER → 2018-10-08 | Outpatient (CLI) | payer MEDICARE, OTHER ==
[~2018-10-08] MED LIST changes: +NAPR-50 PO; -NAPR500T PO; +PIOG1TAB37; -PIOG30TA4; -ROSU20TA PO; +ROSU20TA4 PO; +SPIR-10 PO; -SPIR25TA2 PO
[2018-10-08 12:50] LABS: ALBUMIN 4.1 GM/DL (3.2-5.2); ALT/SGPT 51 U/L (12-78); BILIRUBIN,TOTAL 0.4 MG/DL (0.2-1.0); BLOOD UREA NITROGEN 14 MG/DL (7-18); CALCIUM LEVEL 9.1 MG/DL (8.8-10.2); CARBON DIOXIDE LEVEL 27 MEQ/L (21-32); CHLORIDE LEVEL 103 MEQ/L (98-107); CHOLESTEROL LEVEL 150 MG/DL (<200); CHOLESTEROL RISK RATIO 3.409 (<5); CREATININE FOR GFR 0.89 MG/DL (0.70-1.30); GLOMERULAR FILTRATION RATE > 60.0 (>49); GLUCOSE, FASTING 165 MG/DL (70-100); HDL CHOLESTEROL 44 MG/DL (>40); LDL CHOLESTEROL 72 MG/DL (<100); NON-HDL-C 106 MG/DL; POTASSIUM SERUM 4.2 MEQ/L (3.5-5.1); SODIUM LEVEL 138 MEQ/L (136-145); TOTAL PROTEIN 7.4 GM/DL (6.4-8.2); TRIGLYCERIDES LEVEL 172 MG/DL (<150)
== END ==
LOC: M WUC 09:10
PROVIDERS: ATTEND Physician Assistant
DX: E78.2 Mixed hyperlipidemia (principal)

== ENCOUNTER → 2018-10-19 | Outpatient (REF) | payer MEDICARE, OTHER ==
[2018-10-19 14:21] LABS: HEMOGLOBIN A1c 8.2 %
== END ==
LOC: M LABDRWCV 13:12
PROVIDERS: ATTEND Physician Assistant
DX: R73.01 Impaired fasting glucose (principal)

== ENCOUNTER → 2019-06-01 | Outpatient (REF) | payer MEDICARE, OTHER ==
[~2019-06-01] MED LIST changes: -EZET10TA; +EZET10TA21; -NAPR-50 PO; +NAPR-837 PO; -OMEP20CA3 PO; +OMEP20CA4 PO; -ROSU20TA4 PO; +ROSU20TA5 PO; -VANC125C2 PO; +VANC125C3 PO
[2019-06-01 18:03] LABS: MALB URINE SIEMENS 9.3 MG/L
== END ==
LOC: M LAB REF 16:02
PROVIDERS: ATTEND Nurse Practitioner Family
DX: E11.9 Type 2 diabetes mellitus without complications (principal)

== ENCOUNTER 2019-08-28 17:47 | Emergency (ER) | payer MEDICARE, OTHER ==
[~2019-08-28] VITALS: Ht 182.9 cm; Wt 119.9 kg
[~2019-08-28 17:47] MED LIST changes: +METF-791 PO; -METF500T4 PO
[2019-08-28] MEDS ORDERED: GLYB5TA (18:08)
[2019-08-28] MEDS ORDERED: CHLO125TA (18:08)
[2019-08-28] MEDS ORDERED: LOSA100T50 (18:08)
[2019-08-28] MEDS ORDERED: CARV12.5 (18:08)
--- NOTE | 2019-08-28 18:48 | REPVR ---
PROCEDURE INFORMATION: Exam: CT Head Without Contrast Exam date and time: 08/28/2019 6:14 PM Clinical history: 64 years old, male; Injury or trauma; Fall; Initial encounter; Concussion / head injury; Consciousness not specified TECHNIQUE: Imaging protocol: Computed tomography of the head without contrast. Radiation optimization: All CT scans at this facility use at least one of these dose optimization techniques: automated exposure control; mA and/or kV adjustment per patient size (includes targeted exams where dose is matched to clinical indication); or iterative reconstruction. COMPARISON: No relevant prior studies available. FINDINGS: Brain: Benign appearing calcifications in the basal ganglia bilaterally. Subtle, patchy areas of hypoattenuation in the periventricular and subcortical white matter, nonspecific but suggestive of mild chronic small vessel ischemic disease. No CT evidence of acute intracranial hemorrhage or acute territorial infarction. No significant mass effect or midline shift. Basal cisterns patent. Ventricles: Prominence of the cortical sulci, cisterns and ventricular system, consistent with cerebral and cerebellar volume loss. Bones/joints: Mildly displaced fractures of the right anterior and lateral maxillary sinus velazquez, extending to the orbital floor. Mild deformity of the nasal bones. Sinuses: Dependent blood products in the right maxillary sinus. Mild ethmoid mucosal thickening. Mastoid air cells: Grossly unremarkable. Soft tissues: Right periorbital soft tissue hematoma. Scalp laceration at the anterior vertex. IMPRESSION: 1. No CT evidence of acute intracranial pathology. 2. Mildly displaced fractures of the right anterior and lateral maxillary sinus velazquez, extending to the orbital floor. 3. Mild deformity of the nasal bones. 4. Dependent blood products in the right maxillary sinus. 5. Additional findings, as above. Electronically signed by: Timothy Nickerson On 08/28/2019 18:48:24 PM
--- NOTE | 2019-08-28 18:53 | REPVR ---
PROCEDURE INFORMATION: Exam: CT Maxillofacial Without Contrast Exam date and time: 08/28/2019 6:14 PM Clinical history: 64 years old, male; Injury or trauma; Fall; Initial encounter; Blunt trauma (contusions or hematomas); Orbit/periorbital; Right TECHNIQUE: Imaging protocol: Computed tomography images of the face without contrast. Axial, coronal and sagittal reformatted images were created and reviewed. Radiation optimization: All CT scans at this facility use at least one of these dose optimization techniques: automated exposure control; mA and/or kV adjustment per patient size (includes targeted exams where dose is matched to clinical indication); or iterative reconstruction. COMPARISON: No relevant prior studies available. FINDINGS: Orbits: No retrobulbar abnormality. Globes intact. Sinuses: Dependent blood products in the right maxillary sinus. Mild ethmoid mucosal thickening. Bones/joints: Mildly displaced fractures of the right anterior and lateral maxillary sinus velazquez, extending to the orbital floor. Diastases of the right frontozygomatic suture. Mild deformity of the nasal bones. Soft tissues: Right periorbital soft tissue hematoma. IMPRESSION: 1. Mildly displaced fractures of the right anterior and lateral maxillary sinus velazquez, extending to the orbital floor. Diastases of the right frontozygomatic suture. 2. Mild deformity of the nasal bones. 3. Dependent blood products in the right maxillary sinus. 4. Additional findings, as above. Electronically signed by: Timothy Nickerson On 08/28/2019 18:53:30 PM
--- NOTE | 2019-08-28 18:55 | REPVR ---
PROCEDURE INFORMATION: Exam: CT Cervical Spine Without Contrast Exam date and time: 08/28/2019 6:14 PM Clinical history: 64 years old, male; Injury or trauma; Fall; Initial encounter; Blunt trauma TECHNIQUE: Imaging protocol: Computed tomography images of the cervical spine without contrast. Axial, coronal and sagittal reformatted images were created and reviewed. Radiation optimization: All CT scans at this facility use at least one of these dose optimization techniques: automated exposure control; mA and/or kV adjustment per patient size (includes targeted exams where dose is matched to clinical indication); or iterative reconstruction. COMPARISON: CR Spine, Cervical 04/03/2017 1:14 PM FINDINGS: Vertebrae: Osteopenia. Reversal of the normal cervical lordosis. Mild anterolisthesis of C3 on C4 and C7 on T1. Alignment otherwise anatomic. Mild dextroscoliosis. Congenital nonunion of the C1 posterior arch. No CT evidence of acute fracture, dislocation or subluxation. Vertebral body heights maintained. Discs/Spinal canal/Neural foramina: Mild multilevel degenerative changes, characterized by disc space narrowing, osteophytosis and uncovertebral and facet joint hypertrophy. Mild multilevel spinal canal and neural foraminal narrowing. Soft tissues: Grossly unremarkable. Lungs: Grossly unremarkable. IMPRESSION: 1. No CT evidence of acute cervical spine traumatic injury. 2. Additional findings, as above. Electronically signed by: Timothy Nickerson On 08/28/2019 18:55:04 PM
[2019-08-28] MEDS ORDERED: PERCOCET 5MG/325MG TAB PO ONE (19:45)
[2019-08-28] MEDS ORDERED: ONDANSETRON 4 MG ORAL DISINTEGRATING TAB (Q0162 PER 1MG) PO ONE (19:45)
[2019-08-28] MEDS ORDERED: AFRI0.058 (20:56)
[2019-08-28] MEDS ORDERED: AUGM875T28 PO (20:56)
[2019-08-28] MEDS ORDERED: PSEU30TA88 PO (20:56)
[2019-08-28] MEDS ORDERED: ONDA4TAB6 PO (20:56)
[2019-08-28 21:16] VITALS: BP 125/77
[2019-08-28] MEDS ORDERED: OXYCODONE/APAP 5MG/325MG(BULK FOR ED) 1 TABLET PO ONE (22:00)
--- NOTE | 2019-08-29 10:00 | REP ---
Clinical: Pain. Fall. Technique: Internal rotation, external rotation, and Y view of the right shoulder. Findings: Status post right shoulder replacement. No acute fracture or dislocation. Impression: No acute fracture or dislocation. Electronically Signed by Juno Quintana MD 08/29/2019 09:51 A
== END 2019-08-28 21:52 | disposition home or self-care (01) ==
LOC: M ED 17:47
DX: S01.81XA Laceration without foreign body of other part of head, initial encounter (principal); S02.40CA Maxillary fracture, right side, initial encounter for closed fracture; S02.2XXA Fracture of nasal bones, initial encounter for closed fracture; S06.0X0A Concussion without loss of consciousness, initial encounter; W17.89XA Other fall from one level to another, initial encounter; Y92.099 Unspecified place in other non-institutional residence as the place of occurrence of the external cause; Y93.9 Activity, unspecified; Y99.9 Unspecified external cause status; E11.9 Type 2 diabetes mellitus without complications; I10 Essential (primary) hypertension; Z79.82 Long term (current) use of aspirin; Z79.84 Long term (current) use of oral hypoglycemic drugs; Z79.899 Other long term (current) drug therapy; Z91.018 Allergy to other foods; Z91.89 Other specified personal risk factors, not elsewhere classified; Z88.5 Allergy status to narcotic agent
CPT/HCPCS: 12002; 70450; 70486; 72125; 73030; 99283; Q0162

== ENCOUNTER 2019-10-08 08:52 | Day surgery (SDC) | payer MEDICARE, OTHER ==
[~2019-10-08] VITALS: Ht 182.9 cm; Wt 118.4 kg
[~2019-10-08 08:52] MED LIST changes: +AFRI0.058; +AMOX500C PO; +AUGM875T28 PO; +CARV12.5 PO; +CO-E100C3 PO; +CVS1CAP2 PO; +GLYB5TA PO; +KP F1200 PO; +LOSA100T50 PO; +LR 1,000 ML IV ONE; +MAGN400T2 PO; +METF10004 PO; +OMEP-172 PO; -OMEP20CA4 PO; +ONDA4TAB6 PO; +POTA540T PO; +PSEU30TA88 PO; +ROSU10TA6 PO; +VITA100066 PO
[2019-10-08] MEDS ORDERED: LIDOCAINE 2% INJ 100 MG/5 ML SDV (FOR ANES.) As Ordered ONE (10:26)
[2019-10-08] MEDS ORDERED: PROPOFOL 200 MG/20 ML VIAL As Ordered ONE ×2 (10:26→11:53)
[2019-10-08] MEDS ORDERED: ROCURONIUM BROMIDE 50 MG/5 ML VIAL As Ordered ONE ×2 (10:26→11:46)
[2019-10-08] MEDS ORDERED: MIDAZOLAM INJ 2 MG/2 ML VIAL (J2250) As Ordered ONE (10:26)
[2019-10-08] MEDS ORDERED: fentaNYL 250 MCG/5 ML INJECTION (J3010) As Ordered ONE (10:26)
[2019-10-08] MEDS ORDERED: AMPICILLIN SOD 2 GM in D5W MINI-BAG PLUS 100 ML IV ONE (10:30)
[2019-10-08] MEDS ORDERED: METHYLENE BLUE 0.5% (5MG/ML) 10 ML AMP (PROVAYBLUE)(Q9968 PER 1MG) As Ordered ONE (11:15)
[2019-10-08] MEDS ORDERED: LIDOCAINE W/EPINEPHRINE 1% 20ML VIAL As Ordered ONE (11:15)
[2019-10-08] MEDS ORDERED: OXYMETAZOLINE NASAL SPRAY (AFRIN) As Ordered ONE (11:15)
[2019-10-08] MEDS ORDERED: dexameTHASONE 4 MG/ML 1ML VIAL (J1100) As Ordered ONE (11:42)
[2019-10-08] MEDS ORDERED: ONDANSETRON 4MG/2ML VIAL (J2405) As Ordered ONE (11:53)
[2019-10-08] MEDS ORDERED: SUGAMMADEX SODIUM 500 MG/5 ML VIAL (BRIDION) As Ordered ONE (11:54)
[2019-10-08] MEDS ORDERED: fentaNYL 100 MCG/2 ML INJECTION (J3010) IV PRN (13:15)
[2019-10-08] MEDS ORDERED: oxyCODONE 5MG TAB PO PRN (13:15)
[2019-10-08] MEDS ORDERED: ONDANSETRON 4MG/2ML VIAL (J2405) IV PRN (13:15)
[2019-10-08] MEDS ORDERED: LR 1,000 ML IV SCH (13:15)
[2019-10-08 14:40] VITALS: BP 148/81
--- NOTE | 2019-10-08 22:17 | ECGEPIP ---
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
--- NOTE | 2019-10-12 12:28 | RO ---
DATE OF PROCEDURE: 10/08/2019 PREOPERATIVE DIAGNOSES: Deviated septum, plus nasal fracture, chronic rhinitis. POSTOPERATIVE DIAGNOSES: Deviated septum, plus nasal fracture, chronic rhinitis. PROCEDURE: Septoplasty, partial reduction inferior turbinates. SURGEON: Dr. Antoine Brady SWITCHBOARD WIRER: ANESTHESIA: General endotracheal. INDICATIONS: This is a 64-year-old that approximately two months ago fell and struck his face sustaining a nasal fracture associated with septal deviation. DESCRIPTION OF PROCEDURE: Satisfactory general endotracheal anesthesia administered. Pharyngeal pack placed. The nose was prepared for surgery by placing cotton-soaked pledgets with Afrin solution into the nasal cavity bilaterally. 1% Xylocaine with 1:100,000 epinephrine was used to inject into the nasal septum and inferior turbinates. A Rashid incision was made on the left side of the nose. A mucoperichondrial flap and envelope was created on the left side of the nasal septum and carried down to the junction of the bony and cartilaginous septum. This was then with an elevator, and an envelope was then created on the right side of the septum. A Cyn scissors was used to make a cut high in the perpendicular plate in the midportion of the vomer, and a central segment of the bony septum was resected. Next, with the round knife on the Oscar elevator, a strip of cartilage was resected from the floor of the nose, mobilizing the quadrilateral cartilage and creating a swinging door. Then, a central segment of cartilaginous septum was resected, preserving a 1 cm dorsal and caudal strut. Double-action rongeur was used to take down deflected portions of the perpendicular plate, as well. Finally, the maxillary crest spur was taken down after elevating mucoperiosteum off both sides of it with a chisel. A segment of the resected cartilage was morselized and placed back into the septal envelope. The incision was closed using an interrupted #5-0 chromic suture. Then, a #4-0 plain suture was placed in a [id number] fashion through the two leaves of mucoperichondrium to appose them. Next, the inferior turbinates were medially infractured. A #15 blade was used to make an incision on the anterior tip of the inferior turbinate. With a [place] elevator, a mucoperiosteal tunnel was created on the medial side of the turbinate. Then, the microdebrider with a 2.9 mm blade was inserted into the tunnel, and the underlying turbinate bone was weakened and partially resected using the microdebrider. Then, the turbinate was laterally outfractured. The posteroinferior tip of the turbinate was then cauterized with suction cautery. Li splints were placed into the nose and sewn to the columella with a #2-0 Prolene suture. The pharyngeal pack was removed and the throat suctioned. Then the patient was awakened, extubated and sent to recovery in satisfactory condition. He will be discharged home on Tylox for pain, doxycycline 100 mg twice a day and he will be seen in the office in three days for splint removal.
== END 2019-10-08 14:45 | disposition home or self-care (01) ==
LOC: M SDC 08:52
PROVIDERS: ATTEND Specialist
DX: J34.2 Deviated nasal septum (principal); J31.0 Chronic rhinitis; S02.2XXA Fracture of nasal bones, initial encounter for closed fracture; W19.XXXA Unspecified fall, initial encounter; Y92.89 Other specified places as the place of occurrence of the external cause; Y93.9 Activity, unspecified; Y99.9 Unspecified external cause status; I10 Essential (primary) hypertension; E11.9 Type 2 diabetes mellitus without complications; G47.30 Sleep apnea, unspecified; Z79.82 Long term (current) use of aspirin; Z79.899 Other long term (current) drug therapy; Z91.040 Latex allergy status; Z88.5 Allergy status to narcotic agent; Z91.018 Allergy to other foods; Z87.891 Personal history of nicotine dependence
CPT/HCPCS: 30140; 30520; 88300; 93005; J1100; J2250; J2405; J3010; Q9968

== ENCOUNTER → 2019-12-08 | Outpatient (REF) | payer MEDICARE, OTHER ==
[~2019-12-08] MED LIST changes: -LR 1,000 ML IV ONE; -OMEP-172 PO; +OMEP1CAP73 PO
[2019-12-08 20:47] LABS: ALBUMIN 3.9 GM/DL (3.2-5.2); ALT/SGPT 54 U/L (12-78); BILIRUBIN,TOTAL 0.4 MG/DL (0.2-1.0); BLOOD UREA NITROGEN 18 MG/DL (7-18); CALCIUM LEVEL 8.5 MG/DL (8.8-10.2); CARBON DIOXIDE LEVEL 29 MEQ/L (21-32); CHLORIDE LEVEL 102 MEQ/L (98-107); CHOLESTEROL LEVEL 141 MG/DL (<200); CHOLESTEROL RISK RATIO 3.916 (<5); CREATININE FOR GFR 0.91 MG/DL (0.70-1.30); GLOMERULAR FILTRATION RATE > 60.0 (>49); GLUCOSE, FASTING 164 MG/DL (70-100); HDL CHOLESTEROL 36 MG/DL (>40); LDL CHOLESTEROL 29 MG/DL (<100); NON-HDL-C 105 MG/DL; SODIUM LEVEL 138 MEQ/L (136-145); TOTAL PROTEIN 7.3 GM/DL (6.4-8.2); TRIGLYCERIDES LEVEL 380 MG/DL (<150)
== END ==
LOC: M LABDRWCV 18:20
PROVIDERS: ATTEND Nurse Practitioner Family
DX: E78.00 Pure hypercholesterolemia, unspecified (principal)

== ENCOUNTER → 2020-06-05 | Outpatient (REF) | payer MEDICARE, OTHER ==
[~2020-06-05] MED LIST changes: -ASPI81TA85 PO; +ASPI81TA86 PO; -METF-791 PO; +METF-838 PO
[2020-07-19 11:54] LABS: CREATININE, URINE 71.7 MG/DL; MALB URINE SIEMENS 9.2 MG/L; MAU/CREAT RATIO 12.8 MCG/MG (0.0-30.0)
== END ==
LOC: M LAB REF 12:37
PROVIDERS: ATTEND Nurse Practitioner Family
DX: E11.9 Type 2 diabetes mellitus without complications (principal)

== ENCOUNTER → 2020-07-28 | Outpatient (CLI) | payer MEDICARE, OTHER ==
[2020-07-28 12:40] LABS: BASO % 0.3 % (0.0-1.0); EOS # 0.1 10^3/uL (0.0-0.5); EOS % 1.6 % (0.0-3.0); HEMATOCRIT 41.7 % (42.0-52.0); HEMOGLOBIN 13.9 g/dl (13.5-17.5); LYMPH # 1.9 10^3/uL (1.5-5.0); LYMPH % 27.2 % (24.0-44.0); MEAN CORPUSCULAR HEMOGLOBIN 31.4 pg (27.0-33.0); MEAN CORPUSCULAR HGB CONC 33.3 g/dl (32.0-36.5); MEAN CORPUSCULAR VOLUME 94.1 fl (80.0-96.0); MONO # 0.7 10^3/uL (0.0-0.8); MONO % 9.8 % (0.0-5.0); NEUTROPHILS # 4.2 10^3/uL (1.5-8.5); NEUTROPHILS % 60.7 % (36.0-66.0); PLATELET COUNT, AUTOMATED 200 10^3/uL (150-450); RED BLOOD COUNT 4.43 10^6/uL (4.30-6.10); WHITE BLOOD COUNT 6.9 10^3/uL (4.0-10.0)
[2020-07-28 13:27] LABS: ALBUMIN 3.8 GM/DL (3.2-5.2); ALT/SGPT 45 U/L (12-78); BILIRUBIN,TOTAL 0.5 MG/DL (0.2-1.0); BLOOD UREA NITROGEN 13 MG/DL (7-18); CALCIUM LEVEL 9.4 MG/DL (8.8-10.2); CARBON DIOXIDE LEVEL 28 MEQ/L (21-32); CHLORIDE LEVEL 102 MEQ/L (98-107); CHOLESTEROL LEVEL 161 MG/DL (<200); CHOLESTEROL RISK RATIO 3.833 (<5); GLOMERULAR FILTRATION RATE > 60.0 (>49); GLUCOSE, FASTING 151 MG/DL (70-100); HDL CHOLESTEROL 42 MG/DL (>40); LDL CHOLESTEROL 72 MG/DL (<100); MAGNESIUM LEVEL 1.8 MG/DL (1.8-2.4); NON-HDL-C 119 MG/DL; POTASSIUM SERUM 4.1 MEQ/L (3.5-5.1); SODIUM LEVEL 137 MEQ/L (136-145); TOTAL 25(OH) VITAMIN D 49.2 NG/ML (30.0-100.0); TOTAL PROTEIN 7.2 GM/DL (6.4-8.2); TRIGLYCERIDES LEVEL 235 MG/DL (<150)
[2020-07-28 13:53] LABS: HEMOGLOBIN A1c 6.9 %
== END ==
LOC: M WUC 09:17
PROVIDERS: ATTEND Nurse Practitioner Family
DX: E83.42 Hypomagnesemia (principal); E78.5 Hyperlipidemia, unspecified; E55.9 Vitamin D deficiency, unspecified; E11.69 Type 2 diabetes mellitus with other specified complication

== ENCOUNTER → 2020-10-13 | Outpatient (REF) | payer MEDICARE, OTHER | LOC: M LAB REF 09:25 | PROVIDERS: ATTEND Dermatology | DX: L57.0 Actinic keratosis (principal) ==

== ENCOUNTER → 2021-08-14 | Outpatient (REF) | payer MEDICARE, OTHER ==
[~2021-08-14] MED LIST changes: +GLYB2.5T7 PO; -GLYB25TA PO; -GLYB5TA PO; +GLYB5TAB6 PO; -LISI-538 PO; +LISI20TA33 PO
[2021-08-14 18:08] LABS: ALBUMIN 3.7 GM/DL (3.2-5.2); ALT/SGPT 40 U/L (12-78); BILIRUBIN,TOTAL 0.4 MG/DL (0.2-1.0); BLOOD UREA NITROGEN 16 MG/DL (7-18); CALCIUM LEVEL 9.2 MG/DL (8.8-10.2); CARBON DIOXIDE LEVEL 29 MEQ/L (21-32); CHLORIDE LEVEL 104 MEQ/L (98-107); CHOLESTEROL LEVEL 150 MG/DL (<200); CHOLESTEROL RISK RATIO 3.333 (<5); CREATININE FOR GFR 0.74 MG/DL (0.70-1.30); GLOMERULAR FILTRATION RATE > 60.0 (>49); GLUCOSE, FASTING 134 MG/DL (70-100); HDL CHOLESTEROL 45 MG/DL (>40); LDL CHOLESTEROL 69 MG/DL (<100); NON-HDL-C 105 MG/DL; POTASSIUM SERUM 4.1 MEQ/L (3.5-5.1); SODIUM LEVEL 138 MEQ/L (136-145); TOTAL PROTEIN 6.9 GM/DL (6.4-8.2); TRIGLYCERIDES LEVEL 178 MG/DL (<150)
[2021-08-14 18:10] LABS: HEMOGLOBIN A1c 7.1 %
[2021-08-14 18:14] LABS: CREATININE, URINE 68.2 MG/DL; MALB URINE SIEMENS 12.5 MG/L; MAU/CREAT RATIO 18.3 MCG/MG (0.0-30.0)
== END ==
LOC: M LABDRWCV 15:50
PROVIDERS: ATTEND Nurse Practitioner Family
DX: E11.69 Type 2 diabetes mellitus with other specified complication (principal); I10 Essential (primary) hypertension; E78.2 Mixed hyperlipidemia

== ENCOUNTER → 2021-12-24 | Outpatient (CLI) | payer MEDICARE, OTHER ==
[~2021-12-24] MED LIST changes: +LOSA100T45 PO; -LOSA100T50 PO
== END ==
LOC: M RAD 09:57
PROVIDERS: ATTEND Nurse Practitioner Family
DX: R22.2 Localized swelling, mass and lump, trunk (principal)

== ENCOUNTER → 2022-03-23 | Outpatient (CLI) | payer MEDICARE, OTHER ==
[~2022-03-23] MED LIST changes: -AFRI0.058; +OXYM15SP2
== END ==
LOC: M LABSMTC 09:12
PROVIDERS: ATTEND Anesthesiology
DX: Z01.812 Encounter for preprocedural laboratory examination (principal); Z20.822 Contact with and (suspected) exposure to COVID-19

== ENCOUNTER 2022-03-28 06:35 | Day surgery (SDC) | payer MEDICARE, OTHER ==
[~2022-03-28] VITALS: Ht 182.9 cm; Wt 115.2 kg
[~2022-03-28 06:35] MED LIST changes: +NS 1,000 ML IV ONE
[2022-03-28] MEDS ORDERED: SIMETHICONE 40MG/0.6ML DROPS 30ML As Ordered ONE (06:42)
[2022-03-28] MEDS ORDERED: fentaNYL 100 MCG/2 ML INJECTION As Ordered ONE (07:06)
[2022-03-28] MEDS ORDERED: LIDOCAINE 2% 100MG/5ML SDV (FOR ANES.) As Ordered ONE (07:06)
[2022-03-28] MEDS ORDERED: propofoL 500 MG/50 ML VIAL As Ordered ONE (07:07)
[2022-03-28 08:20] VITALS: BP 149/86
== END 2022-03-28 08:26 | disposition home or self-care (01) ==
LOC: M OPP 06:35
PROVIDERS: ATTEND Surgery
DX: Z12.11 Encounter for screening for malignant neoplasm of colon (principal); D12.6 Benign neoplasm of colon, unspecified; K57.30 Diverticulosis of large intestine without perforation or abscess without bleeding; K21.9 Gastro-esophageal reflux disease without esophagitis; K29.70 Gastritis, unspecified, without bleeding; E11.9 Type 2 diabetes mellitus without complications; G47.33 Obstructive sleep apnea (adult) (pediatric); Z99.89 Dependence on other enabling machines and devices; Z79.82 Long term (current) use of aspirin; Z79.84 Long term (current) use of oral hypoglycemic drugs; Z79.899 Other long term (current) drug therapy; Z88.5 Allergy status to narcotic agent; Z91.018 Allergy to other foods; Z91.040 Latex allergy status
CPT/HCPCS: 43239; 45380; 88305; J3010

== ENCOUNTER → 2022-04-02 | Outpatient (CLI) | payer MEDICARE, OTHER ==
[~2022-04-02] MED LIST changes: -NS 1,000 ML IV ONE
== END ==
LOC: M RAD 11:38
PROVIDERS: ATTEND Nurse Practitioner Family
DX: R22.2 Localized swelling, mass and lump, trunk (principal)

== ENCOUNTER → 2022-08-05 | Outpatient (REF) | payer MEDICARE, OTHER ==
[~2022-08-05] MED LIST changes: +COLE625T17 PO; -COLE625TAB PO
[2022-08-05 18:00] LABS: CREATININE, URINE 83.1 MG/DL; MALB URINE SIEMENS 13.4 MG/L; MAU/CREAT RATIO 16.1 MCG/MG (0.0-30.0)
== END ==
LOC: M LAB REF 16:44
PROVIDERS: ATTEND Nurse Practitioner Family
DX: E11.9 Type 2 diabetes mellitus without complications (principal)

== ENCOUNTER → 2022-08-07 | Outpatient (REF) | payer MEDICARE, OTHER ==
[2022-08-07 18:52] LABS: HEMOGLOBIN A1c 8.5 %
[2022-08-07 19:05] LABS: ALKALINE PHOSPHATASE 49 U/L (45-117); ALT/SGPT 45 U/L (12-78); AST/SGOT 26 U/L (7-37); BILIRUBIN,TOTAL 0.6 MG/DL (0.2-1.0); BLOOD UREA NITROGEN 13 MG/DL (7-18); CALCIUM LEVEL 9.2 MG/DL (8.8-10.2); CARBON DIOXIDE LEVEL 27 MEQ/L (21-32); CHLORIDE LEVEL 103 MEQ/L (98-107); CHOLESTEROL LEVEL 157 MG/DL (<200); GLOMERULAR FILTRATION RATE > 60.0 (>49); GLUCOSE, FASTING 179 MG/DL (70-100); HDL CHOLESTEROL 44 MG/DL (>40); POTASSIUM SERUM 4.2 MEQ/L (3.5-5.1); SODIUM LEVEL 136 MEQ/L (136-145); TRIGLYCERIDES LEVEL 204 MG/DL (<150)
[2022-08-07 19:06] LABS: ALBUMIN 3.8 GM/DL (3.2-5.2); CHOLESTEROL RISK RATIO 3.568 (<5); LDL CHOLESTEROL 72 MG/DL (<100); NON-HDL-C 113 MG/DL; TOTAL PROTEIN 7.3 GM/DL (6.4-8.2)
[2022-08-07 19:18] LABS: MALB URINE SIEMENS 14.4 MG/L; MAU/CREAT RATIO 11.7 MCG/MG (0.0-30.0)
== END ==
LOC: M LABDRAWC 17:03
PROVIDERS: ATTEND Nurse Practitioner Family
DX: E11.69 Type 2 diabetes mellitus with other specified complication (principal); I10 Essential (primary) hypertension; E78.2 Mixed hyperlipidemia

== ENCOUNTER → 2023-06-24 | Outpatient (CLI) | payer MEDICARE, OTHER ==
[~2023-06-24] MED LIST changes: -LOSA100T45 PO; +LOSA100T46 PO; -ROSU20TA5 PO; +ROSU20TA61 PO
[2023-06-24 17:11] LABS: BASO % 0.2 % (0.0-1.0); EOS % 0.3 % (0.0-3.0); HEMATOCRIT 39.7 % (42.0-52.0); HEMOGLOBIN 13.1 g/dl (13.5-17.5); LYMPH # 1.4 10^3/uL (1.5-5.0); LYMPH % 13.6 % (24.0-44.0); MEAN CORPUSCULAR HEMOGLOBIN 30.8 pg (27.0-33.0); MEAN CORPUSCULAR VOLUME 93.4 fl (80.0-96.0); MONO % 9.9 % (2.0-8.0); NEUTROPHILS # 7.5 10^3/uL (1.5-8.5); PLATELET COUNT, AUTOMATED 246 10^3/uL (150-450); RED BLOOD COUNT 4.25 10^6/uL (4.30-6.10)
[2023-06-24 17:40] LABS: BLOOD UREA NITROGEN 11 MG/DL (9-23); CALCIUM LEVEL 8.7 MG/DL (8.3-10.6); CARBON DIOXIDE LEVEL 25 MMOL/L (20-31); CHLORIDE LEVEL 99 MMOL/L (98-107); CREATININE FOR GFR 0.67 MG/DL (0.70-1.30); GLOMERULAR FILTRATION RATE > 60.0 (>42); GLUCOSE, FASTING 216 MG/DL (74-106); POTASSIUM SERUM 3.2 MMOL/L (3.5-5.1); SODIUM LEVEL 134 MMOL/L (136-145)
== END ==
LOC: M WUC 12:01
PROVIDERS: ATTEND Nurse Practitioner Family
DX: R35.0 Frequency of micturition (principal)
CPT/HCPCS: 36415; 80048; 85025; 87086; G0103

== ENCOUNTER 2025-05-26 11:14 | Day surgery (SDC) | payer MEDICARE, OTHER ==
[~2025-05-26] VITALS: Ht 185.4 cm; Wt 99.2 kg
[~2025-05-26 11:14] MED LIST changes: +ATOR1TAB21 PO; +COLE625T PO; +ECOT81TA5 PO; +JARD1TAB3 PO; +LIDOCAINE 2% 100 MG/5 ML SDV (FOR ANES.) As Ordered ONE; +ONDA-282 PO; -ONDA4TAB6 PO; -POTA540T PO; +POTA540T5 PO; -ROSU10TA6 PO; +ROSU10TA61 PO; -ROSU20TA61 PO; +ROSU20TA86 PO; +SEMA2PEN INJ; +TAMS1CAP17 PO; +VANC125C13 PO; -VANC125C3 PO
[2025-05-26 13:45] VITALS: BP 119/64; O2SAT 94
== END 2025-05-26 13:50 | disposition home or self-care (01) ==
LOC: M OPP 11:14
PROVIDERS: ATTEND Surgery
DX: D12.6 Benign neoplasm of colon, unspecified (principal); K57.30 Diverticulosis of large intestine without perforation or abscess without bleeding; K64.8 Other hemorrhoids; K64.4 Residual hemorrhoidal skin tags; Z86.0100 Personal history of colon polyps, unspecified; G47.30 Sleep apnea, unspecified; Z88.5 Allergy status to narcotic agent; Z91.040 Latex allergy status; Z91.018 Allergy to other foods; Z79.82 Long term (current) use of aspirin; Z79.84 Long term (current) use of oral hypoglycemic drugs; Z79.85 Long-term (current) use of injectable non-insulin antidiabetic drugs; Z79.899 Other long term (current) drug therapy

== ENCOUNTER → 2025-10-06 | Outpatient (REF) | payer MEDICARE, OTHER ==
[~2025-10-06] MED LIST changes: -EZET10TA21; +EZET10TA57; -LIDOCAINE 2% 100 MG/5 ML SDV (FOR ANES.) As Ordered ONE; -ROSU10TA61 PO; +ROSU10TA90 PO
[2025-10-10 13:57] LABS: SSA SJOGRENS A <1.0 NEG AI (<1.0 NEG); SSB SJOGRENS B <1.0 NEG AI (<1.0 NEG)
== END ==
LOC: M LAB REF 12:18
PROVIDERS: ATTEND Internal Medicine
DX: M35.00 Sjogren syndrome, unspecified (principal)